=== PATIENT | female | born 1970 | race Caucasian/White ===

== ENCOUNTER 2019-08-26 12:18 | Inpatient (IN) ==
[2019-08-26] MEDS ORDERED: Ondansetron 4 MG/2 ML VIAL IVP ONE ×2 (12:39→14:20)
[2019-08-26] MEDS ORDERED: 0.9 % Sodium Chloride 1,000 ML IVC ONE ×2 (12:39→14:20)
[2019-08-26 13:23] LABS: Basophils % 0.2 %; Eosinophils % 0.2 %; Hematocrit 44.6 % (35.3-44.9); Hemoglobin 15.4 g/dL (11.5-15.4); Immature Granulocytes % 0.6 % (0-4); Lymphocytes # 0.8 K/mcL (0.6-4.6); Lymphocytes % 6.2 %; Mean Corpuscular HGB Conc 34.5 g/dL (31.6-35.5); Mean Corpuscular Hemoglobin 29.7 pg (28.0-33.3); Mean Corpuscular Volume 86.1 fL (83.0-100.0); Mean Platelet Volume 9.5 fL (9.4-12.4); Monocytes # 0.6 K/mcL (0.0-1.3); Monocytes % 4.8 %; Neutrophils # 10.9 K/mcL (1.6-8.9); Platelet Count 246 K/mcL (140-400); Red Blood Count 5.18 M/mcL (3.82-4.97); Red Cell Distribution Width 12.2 % (11.5-14.5); White Blood Count 12.4 K/mcL (4.3-11.1)
[2019-08-26 13:28] LABS: Prothrombin Time 11.4 Seconds (9.4-12.1)
[2019-08-26 13:30] LABS: Activated Partial Thrombo Time 30.8 Seconds (26.0-36.0)
[2019-08-26 13:36] LABS: Alanine Aminotransferase 16 Units/L (7-52); Albumin 4.3 g/dL (3.5-5.7); Albumin/Globulin Ratio 1.1 (1.1-2.2); Alkaline Phosphatase 132 Units/L (34-104); Aspartate Amino Transferase 10 Units/L (13-39); BUN/Creatinine Ratio 16 (6-26); Bilirubin,Total 1.1 mg/dL (0.3-1.0); Blood Urea Nitrogen 14 mg/dL (6-20); Calcium 9.5 mg/dL (8.6-10.3); Carbon Dioxide 22 mEq/L (23-29); Chloride 102 mEq/L (98-107); Globulin 3.9 g/dL (2.4-3.5); Glucose 412 mg/dL (70-105); Magnesium 1.9 mg/dL (1.6-2.6); Osmolality,Calculated 296 (280-300); Potassium 3.9 mEq/L (3.5-5.1); Sodium 134 mEq/L (136-145); Total Protein 8.2 g/dL (6.4-8.9); eGFR For African Americans > 60 (> 60); eGFR For Non-African Americans > 60 (> 60)
[2019-08-26] MEDS ORDERED: Isovue-370 500 ML BOTTLE IVP ONE (14:20)
[2019-08-26] MEDS ORDERED: Insulin Regular, Human 100 UNIT/ML SQ ONE (14:21)
[2019-08-26] MEDS ORDERED: cefTRIAXone 1,000 MG in 0.9 % Sodium Chloride Mini Bag 100 ML IVPB ONE (15:29)
[2019-08-26] MEDS ORDERED: Azithromycin 500 MG in 0.9 % Sodium Chloride 250 ML IVPB ONE (15:30)
[2019-08-26] MEDS ORDERED: Acetaminophen 325 MG TABLET PO PRN (18:32)
[2019-08-26] MEDS ORDERED: *HR* Dextrose 50 % in Water (Syg) 50 ML SYRINGE IVP PRN (18:34)
[2019-08-26] MEDS ORDERED: Dextrose Gel 15 GM/37.5 ML TUBE PO PRN ×2 (18:34)
[2019-08-26] MEDS ORDERED: D5% in Water 1,000 ML IVC PRN (18:34)
[2019-08-26] MEDS ORDERED: Ipratropium/Albuterol Neb 3 ML IH PRN (18:38)
[2019-08-26] MEDS: 0.9 % Sodium Chloride 1,000 ML IVC SCH (20:43)
[2019-08-26] MEDS: traZODone 50 MG TABLET PO SCH (20:46)
[2019-08-26] MEDS: FLUoxetine 20 MG CAPSULE PO SCH (20:47)
[2019-08-26] MEDS: tiZANidine 4 MG TABLET PO SCH (20:48)
[2019-08-26] MEDS ORDERED: *HR* Metformin 500 MG TABLET PO SCH (21:00)
[2019-08-26] MEDS: (Rizatriptan Benzoate [Maxalt] 10 MG) PO PRN (21:04)
[2019-08-26] MEDS: Insulin LISPRO 300 UNITS/3 ML VIAL SQ SCH (21:13)
[2019-08-26] MEDS: Ondansetron ODT 4 MG TAB.RAPDIS SL SCH (21:51)
[2019-08-26] MEDS ORDERED: Melatonin 3 MG TABLET PO SCH (22:00)
[2019-08-27] MEDS: Melatonin 3 MG TABLET PO SCH ×2 (00:37→20:52)
[2019-08-27] MEDS: Ondansetron ODT 4 MG TAB.RAPDIS SL SCH ×4 (05:36→20:55)
[2019-08-27 05:54] LABS: Basophils % 0.4 %; Eosinophils % 0.4 %; Hematocrit 35.2 % (35.3-44.9); Hemoglobin 11.8 g/dL (11.5-15.4); Immature Granulocytes % 0.5 % (0-4); Lymphocytes # 2.3 K/mcL (0.6-4.6); Lymphocytes % 21.2 %; Mean Corpuscular HGB Conc 33.5 g/dL (31.6-35.5); Mean Corpuscular Hemoglobin 29.3 pg (28.0-33.3); Mean Corpuscular Volume 87.3 fL (83.0-100.0); Mean Platelet Volume 9.6 fL (9.4-12.4); Monocytes # 0.8 K/mcL (0.0-1.3); Monocytes % 7.2 %; Neutrophils # 7.7 K/mcL (1.6-8.9); Platelet Count 210 K/mcL (140-400); Red Blood Count 4.03 M/mcL (3.82-4.97); Red Cell Distribution Width 12.5 % (11.5-14.5); Segmented Neutrophils % 70.3 %; White Blood Count 10.9 K/mcL (4.3-11.1)
[2019-08-27] MEDS ORDERED: *HR* Enoxaparin 30 MG/0.3 ML SYRINGE SQ SCH (06:00)
[2019-08-27 06:07] LABS: BUN/Creatinine Ratio 13 (6-26); Blood Urea Nitrogen 10 mg/dL (6-20); Calcium 8.5 mg/dL (8.6-10.3); Carbon Dioxide 21 mEq/L (23-29); Chloride 109 mEq/L (98-107); Glucose 306 mg/dL (70-105); Osmolality,Calculated 293 (280-300); Potassium 3.5 mEq/L (3.5-5.1); Sodium 136 mEq/L (136-145); eGFR For African Americans > 60 (> 60); eGFR For Non-African Americans > 60 (> 60)
[2019-08-27] MEDS: (Liraglutide [Victoza 2-Pak] 1.2 MG) SQ SCH (08:33)
[2019-08-27] MEDS: cefTRIAXone 1,000 MG in Water for inj. (sterile) 10 ML IVP SCH (08:35)
[2019-08-27] MEDS: Insulin LISPRO 300 UNITS/3 ML VIAL SQ SCH ×4 (08:35→21:09)
[2019-08-27] MEDS: FLUoxetine 20 MG CAPSULE PO SCH ×2 (08:35→20:52)
[2019-08-27] MEDS: 0.9 % Sodium Chloride 1,000 ML IVC SCH ×3 (09:37→17:54)
[2019-08-27] MEDS ORDERED: Azithromycin 500 MG in 0.9 % Sodium Chloride 250 ML IVPB SCH (19:00)
[2019-08-27] MEDS: traZODone 50 MG TABLET PO SCH (20:51)
[2019-08-27] MEDS: tiZANidine 4 MG TABLET PO SCH (20:52)
[2019-08-27] MEDS: (Rizatriptan Benzoate [Maxalt] 10 MG) PO PRN (20:53)
[2019-08-28] MEDS: 0.9 % Sodium Chloride 1,000 ML IVC SCH (03:48)
[2019-08-28] MEDS ORDERED: *HR* Enoxaparin 40 MG/0.4 ML SYRINGE SQ SCH (06:00)
[2019-08-28 07:03] VITALS: BP 102/61
[2019-08-28] MEDS: FLUoxetine 20 MG CAPSULE PO SCH (08:42)
[2019-08-28] MEDS: cefTRIAXone 1,000 MG in Water for inj. (sterile) 10 ML IVP SCH (08:43)
[2019-08-28] MEDS: (Liraglutide [Victoza 2-Pak] 1.2 MG) SQ SCH (08:43)
[2019-08-28] MEDS: Ondansetron ODT 4 MG TAB.RAPDIS SL SCH ×2 (08:43→10:15)
[2019-08-28] MEDS: Insulin LISPRO 300 UNITS/3 ML VIAL SQ SCH (08:49)
== END 2019-08-28 11:30 | disposition home or self-care (01) | DRG 203 ==
LOC: EMEROOGRE 12:18 → INPGRE 12:18
PROVIDERS: ADMIT Family Medicine; ATTEND Family Medicine